=== PATIENT | male | born 1935 | race Caucasian/White ===

== ENCOUNTER 2017-02-23 10:25 | Outpatient (CLI) | payer MEDICARE | END 2017-02-23 10:26 | disposition home or self-care (01) | DX: S09.90XA Unspecified injury of head, initial encounter (principal); W17.89XA Other fall from one level to another, initial encounter; Y93.01 Activity, walking, marching and hiking; Y92.414 Local residential or business street as the place of occurrence of the external cause ==

== ENCOUNTER 2017-03-13 20:59 | Outpatient (CLI) | payer MEDICARE | END 2017-03-13 21:00 | disposition critical access hospital (66) | LOC: EMS 20:59 | PROVIDERS: ATTEND Surgery | DX: R55 Syncope and collapse (principal) | CPT/HCPCS: A0425; A0427 ==

== ENCOUNTER 2017-03-13 21:17 | Inpatient (IN) | payer MEDICARE ==
--- NOTE | 2017-03-13 21:33 | ED Physician Documentation ---
PD HPI HEAD INJURY - Stated complaint Stated Complaint: GLF - Chief complaint Chief Complaint: Neuro - History obtained from History obtained from: Patient PD PAST MEDICAL HISTORY - Past Medical History Cardiovascular: Hypertension, High cholesterol, [place], Other Respiratory: Asthma Neuro: Head injury Endocrine/Autoimmune: None GI: Ulcers : Benign prostate hypertrophy Psych: Depression Musculoskeletal: None - Past Surgical History Past Surgical History: Yes Cardiovascular: Coronary stent, AAA - Present Medications Home Medications: Ambulatory Orders Medication Instructions Recorded Confirmed Aspirin 1 tab PO DAILY 05/20/15 05/20/15 Atenolol 1 tab PO DAILY 05/20/15 05/20/15 Clopidogrel Bisulfate [Plavix] 1 tab PO DAILY 05/20/15 05/20/15 Simvastatin 1 tab PO DAILY 05/20/15 05/20/15 - Allergies Allergies/Adverse Reactions: Allergies Allergy/AdvReac Type Severity Reaction Status Date / Time Penicillins AdvReac Intermediate Hives Verified 05/20/15 19:22 - Social History Does the pt smoke?: Yes Smoking Status: Former smoker Does the pt drink ETOH?: No Does the pt have substance abuse?: No - Immunizations Immunizations are current?: Yes - POLST Patient has POLST: No Results - Vitals Vitals: Vital Signs - 24 hr 03/13/17 21:19 Temperature 37 C Heart Rate 65 Respiratory 18 Rate Blood Pressure 118/68 O2 Saturation 89 L Oxygen O2 Source Room air
[2017-03-13 22:10] LABS: BASOPHILS # (AUTO) 0.1 10^3/uL (0.0-0.1); BASOPHILS % (AUTO) 0.4 %; EOSINOPHILS # (AUTO) 0.1 10^3/uL (0.0-0.7); EOSINOPHILS % (AUTO) 0.7 %; HCT - HEMATOCRIT 36.9 % (42.0-52.0); HGB - HEMOGLOBIN 11.3 g/dL (14.0-18.0); LYMPHOCYTES % (AUTO) 6.1 %; MEAN CORPUSCULAR HEMOGLOBIN 24.4 pg (27.0-31.0); MEAN CORPUSCULAR HGB CONC 30.6 g/dL (32.0-36.0); MEAN CORPUSCULAR VOLUME 79.8 fL (80.0-94.0); MEAN PLATELET VOLUME 6.9 fL (7.4-11.4); MONOCYTES # (AUTO) 0.9 10^3/uL (0.0-1.0); MONOCYTES % (AUTO) 5.4 %; NEUTROPHILS # (AUTO) 14.9 10^3/uL (1.5-6.6); NEUTROPHILS % (AUTO) 87.4 %; RED BLOOD COUNT 4.62 10^6/uL (4.70-6.10); RED CELL DISTRIBUTION WIDTH 17.5 % (12.0-15.0)
[2017-03-13 22:16] LABS: INR 1.2 (0.8-1.2); PT - PROTHROMBIN TIME 13.3 secs (9.9-12.6)
[2017-03-13 22:23] LABS: BILIRUBIN,TOTAL 0.4 mg/dL (0.2-1.0); CALCIUM 8.7 mg/dL (8.5-10.3); CREATININE 1.6 mg/dL (0.6-1.2); PARTIAL THROMBOPLASTIN TIME 23.1 secs (24.9-33.3); POTASSIUM 4.7 mmol/L (3.5-5.0); TOTAL PROTEIN 6.7 g/dL (6.7-8.2)
--- NOTE | 2017-03-13 22:34 | XRAY Preliminary Report ---
Exam: XR Chest 1 View IMPRESSION: Mild nonspecific diffuse interstitial prominence. Differential includes chronic lung dise ase and interstitial edema. [facility] SITE ID: [id number]
--- NOTE | 2017-03-13 22:37 | XRAY Report ---
EXAM: CHEST RADIOGRAPHY EXAM DATE: 03/13/2017 10:15 PM. CLINICAL HISTORY: Fall. Hypoxia. COMPARISON: None. TECHNIQUE: 1 view. FINDINGS: Lungs/Pleura: The left hemidiaphragm is mildly elevated. Mild diffuse interstitial prominence. No foc al consolidation or evidence of edema. No pleural effusion or pneumothorax. Mediastinum: Heart size is normal. The aorta is tortuous and contains atherosclerotic calcifications. Other: No acute bony abnormality is evident. IMPRESSION: Mild nonspecific diffuse interstitial prominence. Differential includes chronic lung dise ase and interstitial edema. [facility] Referring Provider Line: [phone] SITE ID: [id number]
[2017-03-13] MEDS ORDERED: SODIUM CHLORIDE 0.9% 1,000 ML IV ONE (22:47)
--- NOTE | 2017-03-13 23:34 | CT Preliminary Report ---
Exam: CT Head W/O IMPRESSION: 1. Moderate generalized atrophy and chronic microvascular angiopathy. 2. 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 2. No acute intracranial abnormality. [facility] SITE ID: [id number]
--- NOTE | 2017-03-13 23:37 | CT Report ---
EXAM: CT HEAD EXAM DATE: 03/13/2017 10:24 PM. CLINICAL HISTORY: Fall. On Plavix. History of dementia. COMPARISON: None. TECHNIQUE: Multiaxial CT images were obtained from the foramen magnum to the vertex. IV contrast: Non e. Reformats: Coronal. In accordance with CT protocol optimization, one or more of the following dose reduction techniques w ere utilized for this exam: automated exposure control, adjustment of mA and/or KV based on patient s ize, or use of iterative reconstructive technique. FINDINGS: Parenchyma: Moderate patchy white matter hypoattenuation, compatible with chronic small vessel ischem ic change. Small remote high right parietal subcortical infarct. Remote right inferior cerebellar inf arct. No intraparenchymal hemorrhage, mass effect, or CT findings of evolving acute/subacute infarct. Hartman-white differentiation is distinct. Extraaxial Spaces: Moderate diffuse sulcal and ventricular prominence, compatible with generalized at rophy. No midline shift. No epidural or subdural collection is seen. Sinuses: Mild patchy mucosal thickening in the bilateral ethmoid and visualized right maxillary sinus es. Bones: No evidence of fracture or calvarial defect. Other: The visualized superficial soft tissues are unremarkable; no hematoma or edema is evident. Oth er splenic calcifications in the bilateral cavernous internal carotid arteries. Right lens replacemen t noted. IMPRESSION: 1. Moderate generalized atrophy and chronic microvascular angiopathy. 2. 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 2. No acute intracranial abnormality. [facility] Referring Provider Line: [phone] SITE ID: [id number]
--- NOTE | 2017-03-13 23:44 | CT Preliminary Report ---
Exam: CT Cervical Spine W/O IMPRESSION: 1. Severe multilevel degenerative disk disease and mild to moderate multilevel facet arthropathy, as detailed above. 2. Acute on chronic right maxillary and mild acute right ethmoid sinusitis. 3. No acute bony abnormality. [facility] SITE ID: [id number]
--- NOTE | 2017-03-13 23:46 | CT Report ---
EXAM: CT CERVICAL SPINE WITHOUT CONTRAST DATE: 03/13/2017 10:25 PM HISTORY: Fall. History of dementia. COMPARISONS: None. TECHNIQUE: Thin-section axial images were acquired of the cervical spine without contrast. Post-proce ssing: Coronal and sagittal reformats. Other: None. In accordance with CT protocol optimization, one or more of the following dose reduction techniques w ere utilized for this exam: automated exposure control, adjustment of mA and/or KV based on patient s ize, or use of iterative reconstructive technique. FINDINGS: Alignment: No scoliosis or spondylolisthesis. Bones: No fracture or bone lesion. Interspace Levels/Facets: C1-C2: Mild to moderate odontoaxial osteoarthritis. C2-C3: Unremarkable. C3-C4: Severe disk height loss. Disk osteophyte complex and moderate right and mild left facet arthro patrick causing mild bony central canal stenosis and moderate bilateral bony neural foraminal narrowing . C4-C5: Severe disk height loss. Disk osteophyte complex and mild right facet arthropathy causing mild bony central canal stenosis and severe bilateral bony neural foraminal narrowing. C5-C6: Severe disk height loss. Disk osteophyte complex causing mild bony central canal stenosis and severe bilateral bony neural foraminal narrowing. C6-C7: Severe disk height loss. Disk osteophyte complex and mild bilateral facet arthropathy causing mild right bony neural foraminal narrowing. No significant bony central canal stenosis. C7-T1: Unremarkable. Other: Mild patchy mucosal thickening in the bilateral ethmoid air cells, with trace fluid and air bu bbles in the anterior right ethmoid air cells. Mucosal thickening and trace fluid in the right maxill glenny sinus, with hyperostosis of the sinus hairston indicating chronic inflammation. Mucous retention cys t or polyp in the medial left maxillary sinus. No paravertebral hematoma or edema is evident. Emphyse matous changes in the lung apices. IMPRESSION: 1. Severe multilevel degenerative disk disease and mild to moderate multilevel facet arthropathy, as detailed above. 2. Acute on chronic right maxillary and mild acute right ethmoid sinusitis. 3. No acute bony abnormality. [facility] Referring Provider Line: [phone] SITE ID: [id number]
[2017-03-14] MEDS ORDERED: SODIUM CHLORIDE 0.9% 1,000 ML IV ONE (00:15)
[2017-03-14 01:04] LABS: BILIRUBIN,URINE NEGATIVE (NEGATIVE); PH,URINE 5.5 PH (5.0-7.5)
[2017-03-14 01:21] LABS: UA w/ MICROSCOPIC CHARGE YES
[2017-03-14 01:22] LABS: UR CULTURE IF IND NOT INDICATED; WBC,URINE 0-3 /HPF (0-3)
[2017-03-14] MEDS ORDERED: cefTRIAXone 1 GM in SODIUM CHLORIDE 0.9% MINIBAG 100 ML IV STA (01:33)
[2017-03-14] MEDS ORDERED: AZITHROMYCIN INJ 500 MG in SODIUM CHLORIDE 0.9% 250 ML IV STA (01:33)
[2017-03-14] MEDS ORDERED: cefTRIAXone 1 GM VIAL ONE (01:42)
--- NOTE | 2017-03-14 01:42 | ED Physician Documentation ---
PD HPI SYNCOPE - Stated complaint Stated Complaint: GLF - Chief complaint Chief Complaint: Neuro - History obtained from History obtained from: Patient, Family, EMS - History of Present Illness Witnessed: Witnessed Timing - onset: How many hours ago (1) Duration: Minutes (4) Preceding symptoms: Light headed Associated symptoms: No: Seizure, Incontinant of urine, Incontinant of stool, Chest pain, Abdominal pain Contributing factors: Just stood up. No: Recent med change Injury occurred: Fell. No: Bit tongue Similar symptoms before: Has not had sx before Recently seen: Not recently seen - Additional information Additional information: Patient is an 82 year old male who is presenting to the emergency department for a syncopal episode. According to family patient was in the kitchen, he bent over to mixing picker tender a dish, when he stood up he passed out and fell straight backwards. the witnessed the event and states that he did not move for about 4 minutes until he regained consciousness. Upon arrival in the emergency department patient was awake, and denied any pain but he does have a history of mild dementia. Review of Systems Unable to obtain: Dementia PD PAST MEDICAL HISTORY - Past Medical History Cardiovascular: Hypertension, High cholesterol, [place], Other Respiratory: Asthma Neuro: Head injury Endocrine/Autoimmune: None GI: Ulcers : Benign prostate hypertrophy Psych: Depression Musculoskeletal: None - Past Surgical History Past Surgical History: Yes Cardiovascular: Coronary stent, AAA - Present Medications Home Medications: Ambulatory Orders Medication Instructions Recorded Confirmed Aspirin 1 tab PO DAILY 05/20/15 05/20/15 Atenolol 1 tab PO DAILY 05/20/15 05/20/15 Clopidogrel Bisulfate [Plavix] 1 tab PO DAILY 05/20/15 05/20/15 Simvastatin 1 tab PO DAILY 05/20/15 05/20/15 - Allergies Allergies/Adverse Reactions: Allergies Allergy/AdvReac Type Severity Reaction Status Date / Time Penicillins AdvReac Intermediate Hives Verified 05/20/15 19:22 - Social History Does the pt smoke?: Yes Smoking Status: Former smoker Does the pt drink ETOH?: No Does the pt have substance abuse?: No - Immunizations Immunizations are current?: Yes - POLST Patient has POLST: No PD ED PE NORMAL - General General: No acute distress - HEENT HEENT: Atraumatic, PERRL - Neck Neck: No bony TTP - Cardiac Cardiac: No rub - Abdomen Abdomen: Soft, Non tender, Non distended - Extremities Extremities: No deformity, No edema, No calf tenderness / cord - Neuro Neuro: No motor deficit, Normal speech - Psych Psych: Normal mood PD ED PE EXPANDED - General General: No acute distress, Disheveled, poorly kept - HEENT HEENT: Atraumatic, PERRL, Dry mucous membranes, Other (no signs of dental trauma ). No: Head injury - Respiratory Respiratory: Wheezing. No: Distress, Labored, Accessory mm use - Derm Derm: Other (poor skin turgor ) Results - Vitals Vitals: Vital Signs - 24 hr 03/13/17 03/13/17 03/13/17 21:19 21:55 23:46 Temperature 37 C Heart Rate 65 62 60 Respiratory 18 26 H 22 Rate Blood Pressure 118/68 99/51 L 126/70 O2 Saturation 89 L 94 96 03/14/17 03/14/17 00:07 01:59 Temperature 36.6 C 36.6 C Heart Rate 59 L Respiratory 24 Rate Blood Pressure 110/57 L O2 Saturation 95 Oxygen O2 Source Nasal cannula Oxygen Flow Rate 2 - EKG (time done) 6 Rate: Rate (enter#) (81) Rhythm: NSR [place]: LAD Intervals: Prolonged [place] (204), RBBB, Other (lafb) Ischemia: Q waves Compare to prior EKG: Old EKG unavailable - Labs Labs: Laboratory Tests 03/13/17 03/13/17 03/13/17 21:50 21:50 21:50 WBC 17.0 H RBC 4.62 L Hgb 11.3 L Hct 36.9 L MCV 79.8 L MCH 24.4 L MCHC 30.6 L RDW 17.5 H Plt Count 249 MPV 6.9 L Neut # 14.9 H Lymph # 1.0 L Rolette # 0.9 Eos # 0.1 Baso # 0.1 Absolute Nucleated RBC 0.00 Nucleated RBCs 0.0 PT 13.3 H INR 1.2 APTT 23.1 L Sodium 141 Potassium 4.7 Chloride 107 Carbon Dioxide 26 Anion Gap 8.0 BUN 52 H Creatinine 1.6 H Estimated GFR (MDRD) 41 L Glucose 121 H Lactic Acid Calcium 8.7 Total Bilirubin 0.4 AST 39 ALT 40 Alkaline Phosphatase 72 Troponin I B-Natriuretic Peptide Total Protein 6.7 Albumin 3.3 Globulin 3.4 Albumin/Globulin Ratio 1.0 Lipase 40 Urine Color Urine Clarity Urine pH Ur Specific [place] Urine Protein Urine Glucose (UA) Urine Ketones Urine Occult Blood Urine Nitrite Urine Bilirubin Urine Urobilinogen Ur Leukocyte Esterase Urine RBC Urine WBC Ur Squamous Epith Cells Urine Bacteria Ur Microscopic Review Urine Culture Comments 03/13/17 03/13/17 03/13/17 21:50 21:50 23:10 WBC RBC Hgb Hct MCV MCH MCHC RDW Plt Count MPV Neut # Lymph # Rolette # Eos # Baso # Absolute Nucleated RBC Nucleated RBCs PT INR APTT Sodium Potassium Chloride Carbon Dioxide Anion Gap BUN Creatinine Estimated GFR (MDRD) Glucose Lactic Acid 0.6 Calcium Total Bilirubin AST ALT Alkaline Phosphatase Troponin I < 0.04 B-Natriuretic Peptide 251 H Total Protein Albumin Globulin Albumin/Globulin Ratio Lipase Urine Color Urine Clarity Urine pH Ur Specific [place] Urine Protein Urine Glucose (UA) Urine Ketones Urine Occult Blood Urine Nitrite Urine Bilirubin Urine Urobilinogen Ur Leukocyte Esterase Urine RBC Urine WBC Ur Squamous Epith Cells Urine Bacteria Ur Microscopic Review Urine Culture Comments 03/14/17 00:57 WBC RBC Hgb Hct MCV MCH MCHC RDW Plt Count MPV Neut # Lymph # Rolette # Eos # Baso # Absolute Nucleated RBC Nucleated RBCs PT INR APTT Sodium Potassium Chloride Carbon Dioxide Anion Gap BUN Creatinine Estimated GFR (MDRD) Glucose Lactic Acid Calcium Total Bilirubin AST ALT Alkaline Phosphatase Troponin I B-Natriuretic Peptide Total Protein Albumin Globulin Albumin/Globulin Ratio Lipase Urine Color YELLOW Urine Clarity CLEAR Urine pH 5.5 Ur Specific [place] 1.025 Urine Protein 30 H Urine Glucose (UA) NEGATIVE Urine Ketones NEGATIVE Urine Occult Blood SMALL H Urine Nitrite NEGATIVE Urine Bilirubin NEGATIVE Urine Urobilinogen 0.2 (NORMAL) Ur Leukocyte Esterase NEGATIVE Urine RBC None Seen Urine WBC 0-3 Ur Squamous Epith Cells RARE Squamous Urine Bacteria None Seen Ur Microscopic Review INDICATED Urine Culture Comments NOT INDICATED - Rads (name of study) chest x-ray Radiology: Final report received (diffuse interstitial prominence, chronic lung disease vs interstitial edema) ct head Radiology: Final report received (moderate generalized atrophy, chonric microvascular angiopathy, no acute changes) ct cervical spine Radiology: Final report received (multilevel degenerativve disk disease, no acute bony abnormality) PD MEDICAL DECISION MAKING - ED course Complexity details: reviewed results, re-evaluated patient, considered differential, d/w patient, d/w family ED course: Patient was seen and examined at bedside. Patient was placed on a monitor, iv access was gained and labs were drawn. ekg was performed and showed multiple abnormalities but no signs of acute ischemia. Patient was started on IV fluids. Patient was sent for imaging. When patient returned he was found to have a leukocytosis and teodora, which was new according to his . Patient was unable to urinate and was treated with an additional liter of fluid. patients chest x-ray had non-specific findings but was the most likely source of the leukocytosis. Patient was treated with rocephin and azithromycin. Hospitalist was contacted and the case was discussed with her. Patient was admitted under her service for further evaluation and care. Departure - Departure Disposition: 66 [facility] DC/Xfer Clinical Impression: Syncope, Leukocytosis, TEODORA (acute kidney injury) Condition: Stable
[2017-03-14 02:38] LABS: VBG PH 7.284 (7.31-7.41)
[2017-03-14 02:39] LABS: VBG BASE EXCESS -3.1 mmol/L (-2 - +2); VBG OXYGEN SATURATION 94.9 % (60-80); VBG TOTAL CO2 25.5 mmol/L (24-29)
--- NOTE | 2017-03-14 03:10 | HISTORY & PHYSICAL EXAMINATION ---
DATE OF ADMISSION: 03/13/2017 PRIMARY CARE PROVIDER: Dr. Ferrer, [facility]. CHIEF COMPLAINT: Syncopal episode. HISTORY OF PRESENT ILLNESS: This is an 82-year-old male who has a history of COPD who also has some d ementia who was in his usual state of health, was bending over to picket [employer] some plates out of a cabine t, stood up and felt lightheaded, fell backwards. His evaluation in the emergency room includes a whi te count of 17.0. Chest x-ray shows possible bibasilar pneumonia infiltrates. His CT of head without contrast reveals moderate generalized atrophy and chronic microvascular angiopathy remote infarcts in the high right parietal lobe and inferior right cerebellum. No acute intracranial abnormalities note d. CT of neck reveals severe multilevel degenerative disk disease and mild to moderate multilevel fac et arthropathy, acute on chronic right maxillary and mild acute right ethmoid sinusitis, no acute bon y abnormalities noted. EKG reveals sinus at a rate of 81 with right bundle branch block, left anterio r fascicular blocks, old inferior infarct pattern with Q's in II, III, aVF. Initial troponin is less than 0.04. Lactic acid is 0.6. Urine shows protein of 30, small occult blood, otherwise negative. PAST MEDICAL HISTORY: Coronary artery disease with stent placed in [facility] in 2010, history of abdominal aortic aneurysm repair in 2011, history of BPH, hyperlipidemia, hypertension, h istory of [place]. MEDICATIONS UPON ADMISSION 1. ASA 325 mg p.o. daily. 2. Atenolol 50 mg p.o. daily. 3. Plavix 75 mg p.o. daily. 4. Simvastatin 40 mg p.o. daily. ALLERGIES: PENICILLIN. SOCIAL HISTORY: Lives with . Smoking currently a pack per day. Alcohol none. FAMILY MEDICAL HISTORY: History of CAD. REVIEW OF SYSTEMS: Denies any fevers, chills. Denies any nausea or vomiting. All other review of syst ems are reviewed and negative except for as in HPI. PHYSICAL EXAMINATION VITAL SIGNS: Reveals temperature is afebrile, heart rate 59, blood pressure 110/57, respiratory rate 24, 2 L nasal cannula O2 saturation 95%. CONSTITUTIONAL: Disheveled elderly man in no acute distress. HEAD: Normocephalic, atraumatic. EYES: PERRLA-DC, EOMI. MOUTH: Uses dentures. NECK: No adenopathy. Carotids 2+/4 without bruits. CHEST: Diffuse scattered wheezes. COR: Regular rate and rhythm, S1, S2 without murmur. ABDOMEN: Soft, nontender. Bowel sounds present. EXTREMITIES: Reveals no pedal edema. SKIN: No rashes. PSYCHIATRIC: Mood and affect are appropriate. NEUROLOGIC: Alert and oriented x3. Motor strength is intact bilaterally. LABORATORY DATA: As above. Also to include INR is 1.2, PTT is 23.1. White count 17.0, hematocrit 36.9 , hemoglobin 11.3, MCV 79.8, platelets 249 with 14.9 polys. Sodium 141, potassium 4.7, chloride 107, bicarbonate 26, BUN 52, creatinine 1.6, calculated GFR 41. Of note, no previous GFR is listed in the EMR. Glucose 121, lactic acid 0.6, calcium 8.7, total bilirubin 0.4, AST 39, ALT 40, alkaline phospha tase 72, BNP 251, total protein 6.7, albumin 3.3, lipase 40. ASSESSMENT AND PLAN 1. Syncopal episode, acute, present on admission, unclear etiology. We will go ahead and may be relat ed to sepsis with pneumonia, but will check serial cardiac enzymes. We will also check echocardiogram with bubble study. Monitor blood pressures. 2. Sepsis with bibasilar pneumonic infiltrates, community-acquired. Will cover with IV Rocephin and I V azithromycin. Check influenza screen. Check sputum studies for culture and Gram stain. 3. Chronic obstructive pulmonary disease exacerbation with hypoxia and wheezing. We will go ahead and check a venous blood gas. We will go ahead and place on prednisone 40 mg p.o. daily along with DuoNe bs q.i.d. and Albuterol nebs p.r.n. 4. Deep venous thrombosis prophylaxis. We will place on subcutaneous heparin and SCDs. 5. Code status. The patient is FULL CODE. TIME SPENT: 60 minutes. JOB #: [id number] EXT JOB #:[id number]
[2017-03-14] MEDS ORDERED: IPRATROPIUM/ALBUTEROL 3 ML NEB INH ONE (04:52)
[2017-03-14] MEDS ORDERED: ALBUTEROL NEB 2.5 MG/3 ML INH SCH (05:00)
[2017-03-14] MEDS: IPRATROPIUM/ALBUTEROL 3 ML NEB INH SCH ×2 (05:04→07:50)
[2017-03-14] MEDS ORDERED: ALBUTEROL NEB 2.5 MG/3 ML INH PRN (05:14)
[2017-03-14 05:54] LABS: BASOPHILS % (AUTO) 0.4 %; EOSINOPHILS # (AUTO) 0.1 10^3/uL (0.0-0.7); EOSINOPHILS % (AUTO) 0.8 %; HCT - HEMATOCRIT 34.1 % (42.0-52.0); HGB - HEMOGLOBIN 10.4 g/dL (14.0-18.0); LYMPHOCYTES # (AUTO) 1.1 10^3/uL (1.5-3.5); LYMPHOCYTES % (AUTO) 8.7 %; MEAN CORPUSCULAR HEMOGLOBIN 24.6 pg (27.0-31.0); MEAN CORPUSCULAR HGB CONC 30.6 g/dL (32.0-36.0); MEAN CORPUSCULAR VOLUME 80.4 fL (80.0-94.0); MEAN PLATELET VOLUME 6.8 fL (7.4-11.4); MONOCYTES # (AUTO) 0.7 10^3/uL (0.0-1.0); MONOCYTES % (AUTO) 5.3 %; NEUTROPHILS # (AUTO) 10.6 10^3/uL (1.5-6.6); NEUTROPHILS % (AUTO) 84.8 %; RED BLOOD COUNT 4.25 10^6/uL (4.70-6.10); RED CELL DISTRIBUTION WIDTH 18.3 % (12.0-15.0); UNCORRECTED WHITE BLOOD COUNT 12.4 x10^3/uL; WHITE BLOOD COUNT 12.4 x10^3/uL (4.8-10.8)
[2017-03-14 06:06] LABS: CREATININE 1.4 mg/dL (0.6-1.2); POTASSIUM 4.6 mmol/L (3.5-5.0)
[2017-03-14] MEDS ORDERED: HYDROcod/ACETAM 5/325 MG TABLET PO PRN (07:50)
[2017-03-14] MEDS ORDERED: ONDANSETRON 4 MG/2 ML VIAL IVP PRN (07:50)
[2017-03-14] MEDS ORDERED: ACETAMINOPHEN 325 MG TABLET PO PRN (07:50)
[2017-03-14] MEDS ORDERED: HEPARIN 5,000 UNIT/ML VIAL IVP SCH (09:00)
[2017-03-14] MEDS ORDERED: HEPARIN 5,000 UNIT/ML VIAL SUBQ SCH (09:00)
[2017-03-14] MEDS: SODIUM CHLORIDE 0.9% 1,000 ML IV SCH (09:48)
[2017-03-14] MEDS: SODIUM CHLORIDE FLUSH 0.9% 10 ML SYRINGE IVP SCH ×2 (09:49→22:02)
[2017-03-14] MEDS: AZITHROMYCIN INJ 500 MG in SODIUM CHLORIDE 0.9% 250 ML IV SCH (09:52)
[2017-03-14] MEDS: ASPIRIN 325 MG TABLET PO SCH (09:53)
[2017-03-14] MEDS: CLOPIDOGREL 75 MG TABLET PO SCH (09:53)
[2017-03-14] MEDS: predniSONE 20 MG TABLET PO SCH (09:53)
[2017-03-14] MEDS: ATORVASTATIN 10 MG TABLET PO SCH (09:55)
[2017-03-14] MEDS: SACCHAROMYCES BOULARDII 250 MG CAPSULE PO SCH ×2 (09:56→22:02)
[2017-03-14] MEDS: ENOXAPARIN 40 MG/0.4 ML SYRINGE SUBQ SCH (09:56)
[2017-03-14] MEDS: POLYETHYLENE GLYCOL 3350 17 GM PACKET PO SCH (09:56)
[2017-03-14] MEDS ORDERED: IPRATROPIUM/ALBUTEROL 3 ML NEB INH PRN (11:45)
[2017-03-14] MEDS: PANTOPRAZOLE 40 MG TABLET PO SCH (12:30)
[2017-03-14] MEDS: ATENOLOL 25 MG TABLET PO SCH (12:30)
--- NOTE | 2017-03-14 17:46 | PROVIDER PROGRESS NOTE ---
Hospitalist Cross-cover Note - Cross-Cover Note Cross-Cover Note: Patient seen and examined this morning. Presented early this morning for syncope and found to be septic with CXR showing pneumonia. Patient down to 1L of O2 this am. He is eating and appears improved. Talking in full sentences. Denies any fever or chest pain. Lungs have corase sounds. Patient improving. WBC down to 12.4. COntinue IV abx with ceftriaxone and azithromycin. Patient eating will no need for IVFs.
[2017-03-15] MEDS: SODIUM CHLORIDE 0.9% 1,000 ML IV SCH ×2 (01:40→08:14)
[2017-03-15] MEDS: cefTRIAXone 2 GM in SODIUM CHLORIDE 0.9% MINIBAG 100 ML IV SCH (01:44)
[2017-03-15 06:05] LABS: BASOPHILS % (AUTO) 0.2 %; EOSINOPHILS % (AUTO) 0.2 %; HCT - HEMATOCRIT 32.4 % (42.0-52.0); HGB - HEMOGLOBIN 10.1 g/dL (14.0-18.0); LYMPHOCYTES # (AUTO) 1.3 10^3/uL (1.5-3.5); LYMPHOCYTES % (AUTO) 8.3 %; MEAN CORPUSCULAR HEMOGLOBIN 24.7 pg (27.0-31.0); MEAN CORPUSCULAR HGB CONC 31.2 g/dL (32.0-36.0); MEAN PLATELET VOLUME 6.7 fL (7.4-11.4); MONOCYTES # (AUTO) 1.1 10^3/uL (0.0-1.0); MONOCYTES % (AUTO) 7.3 %; NEUTROPHILS # (AUTO) 13.1 10^3/uL (1.5-6.6); RED BLOOD COUNT 4.11 10^6/uL (4.70-6.10); RED CELL DISTRIBUTION WIDTH 17.9 % (12.0-15.0); UNCORRECTED WHITE BLOOD COUNT 15.6 x10^3/uL; WHITE BLOOD COUNT 15.6 x10^3/uL (4.8-10.8)
[2017-03-15 06:12] LABS: CALCIUM 8.3 mg/dL (8.5-10.3); CREATININE 1.1 mg/dL (0.6-1.2); POTASSIUM 4.3 mmol/L (3.5-5.0)
[2017-03-15] MEDS: ENOXAPARIN 40 MG/0.4 ML SYRINGE SUBQ SCH (07:55)
[2017-03-15] MEDS: ASPIRIN 325 MG TABLET PO SCH (07:56)
[2017-03-15] MEDS: predniSONE 20 MG TABLET PO SCH (07:56)
[2017-03-15] MEDS: ATORVASTATIN 10 MG TABLET PO SCH (07:56)
[2017-03-15] MEDS: CLOPIDOGREL 75 MG TABLET PO SCH (07:56)
[2017-03-15] MEDS: SACCHAROMYCES BOULARDII 250 MG CAPSULE PO SCH ×2 (07:57→17:18)
[2017-03-15] MEDS: ATENOLOL 25 MG TABLET PO SCH (07:57)
[2017-03-15] MEDS: PANTOPRAZOLE 40 MG TABLET PO SCH (07:57)
[2017-03-15] MEDS: POLYETHYLENE GLYCOL 3350 17 GM PACKET PO SCH (07:58)
[2017-03-15] MEDS: AZITHROMYCIN INJ 500 MG in SODIUM CHLORIDE 0.9% 250 ML IV SCH (08:12)
[2017-03-15] MEDS: SODIUM CHLORIDE FLUSH 0.9% 10 ML SYRINGE IVP SCH ×3 (08:15→21:22)
--- NOTE | 2017-03-15 10:20 | PROVIDER PROGRESS NOTE ---
Assessment/Plan - Problem List (1) Pneumonia Assessment/Plan: He has been on the antibx 24 hours. He is improved. He is now on roomn aior. He is anxious though. \ WBC ester again after an initial decline 17K to 12 K and now up to 15 K. He is dyspneic with minimal exertion. (2) Sepsis Assessment/Plan: He is still systemically sick though he is not septidc anymore. He will need the CXR repeated. He does have problems with chronic risk factors, i.e. his tobacco abuse and his COPD. - Current Meds Current Meds: Current Medications Generic Name Dose Route Start Last Admin Trade Name Freq PRN Reason Stop Dose Admin Aspirin 325 mg 03/14/17 09:00 03/15/17 07:56 Nik PO 325 mg DAILY ALONZO Administration Atenolol 50 mg 03/14/17 09:00 03/15/17 07:57 Tenormin PO 50 mg DAILY ALONZO Administration Atorvastatin Calcium 20 mg 03/14/17 09:00 03/15/17 07:56 Lipitor PO 20 mg DAILY ALONZO Administration Clopidogrel Bisulfate 75 mg 03/14/17 09:00 03/15/17 07:56 Plavix PO 75 mg DAILY ALONZO Administration Enoxaparin Sodium 40 mg 03/14/17 09:00 03/15/17 07:55 Lovenox SUBQ 40 mg DAILY ALONZO Administration Ceftriaxone Sodium 2 gm/ 100 mls @ 200 mls/hr 03/15/17 02:00 03/15/17 01:44 Sodium Chloride IV 200 mls/hr Q24H ALONZO Administration Azithromycin 500 mg/ Sodium 250 mls @ 250 mls/hr 03/14/17 09:00 03/15/17 08:12 Chloride IV 250 mls/hr DAILY ALONZO Administration Pantoprazole Sodium 40 mg 03/14/17 11:00 03/15/17 07:57 Protonix PO 40 mg QDAC ALONZO Administration Polyethylene Glycol 17 gm 03/14/17 09:00 03/15/17 07:58 Miralax PO Not Given DAILY ALONZO Prednisone 40 mg 03/14/17 08:00 03/15/17 07:56 Deltasone PO 40 mg DAILYWM ALONZO Administration Saccharomyces Boulardii 250 mg 03/14/17 08:00 03/15/17 07:57 Florastor PO 250 mg BIDWM ALONZO Administration Sodium Chloride 10 ml 03/14/17 14:00 03/15/17 08:15 Normal Saline Flush 0.9% IVP Not Given Q8HR ALONZO - Lab Result Fish Bone Diagrams: 03/15/17 05:45 03/15/17 05:45 - Additional Planning My Orders: My Active Orders 03/15/17 11:00 Nicotine 21 mg Patch [Nicoderm] 1 patch TOP DAILY Subjective - Subjective Patient Reports: Feeling Better, Shortness of Breath Nursing Reports: Confused, Other (He appears anxious.) Objective Vital Signs: Vital Signs - 24 hr 03/14/17 03/14/17 03/14/17 11:00 21:52 23:35 Temperature 36.7 C 36.9 C Heart Rate 68 Heart Rate [ 73 Brachial] Respiratory 18 20 16 Rate Blood Pressure 152/87 H 108/56 L [Left Brachial artery] O2 Saturation 94 94 03/15/17 03/15/17 03/15/17 07:55 09:00 09:27 Temperature 36.6 C Heart Rate 60 Heart Rate [ 78 Brachial] Respiratory 22 18 Rate Blood Pressure 200/110 H [Left Brachial artery] O2 Saturation 93 Oxygen O2 Source Room air I&O (Last 24 Hrs): Intake and Output Totals x24h 03/13/17 03/14/17 03/15/17 23:59 23:59 23:59 Intake Total 2526 780 Output Total 450 1375 Balance 2076 -595 General: Alert, Cooperative HEENT: PERRLA, EOMI Neck: No JVD, No thyromegaly Neuro: Alert, Disoriented, Non Focal Cardiovascular: Regular rate, No murmurs Respiratory: Chest non-tender, Rales, Rhonchi Abdomen: Soft, No tenderness Extremities: No clubbing, No edema - Results Results: Laboratory Results WBC 15.6 x10^3/uL (4.8-10.8) H 03/15/17 05:45 RBC 4.11 10^6/uL (4.70-6.10) L 03/15/17 05:45 Hgb 10.1 g/dL (14.0-18.0) L 03/15/17 05:45 Hct 32.4 % (42.0-52.0) L 03/15/17 05:45 MCV 79.0 fL (80.0-94.0) L 03/15/17 05:45 MCH 24.7 pg (27.0-31.0) L 03/15/17 05:45 MCHC 31.2 g/dL (32.0-36.0) L 03/15/17 05:45 RDW 17.9 % (12.0-15.0) H 03/15/17 05:45 Plt Count 245 10^3/uL (130-450) 03/15/17 05:45 MPV 6.7 fL (7.4-11.4) L 03/15/17 05:45 Neut # 13.1 10^3/uL (1.5-6.6) H 03/15/17 05:45 Lymph # 1.3 10^3/uL (1.5-3.5) L 03/15/17 05:45 [place] # 1.1 10^3/uL (0.0-1.0) H 03/15/17 05:45 Eos # 0.0 10^3/uL (0.0-0.7) 03/15/17 05:45 Baso # 0.0 10^3/uL (0.0-0.1) 03/15/17 05:45 Absolute Nucleated RBC 0.00 x10^3/uL 03/15/17 05:45 Nucleated RBCs 0.0 /100WBC 03/15/17 05:45 PT 13.3 secs (9.9-12.6) H 03/13/17 21:50 INR 1.2 (0.8-1.2) 03/13/17 21:50 APTT 23.1 secs (24.9-33.3) L 03/13/17 21:50 VBG pH 7.284 (7.31-7.41) L 03/14/17 02:30 VBG pCO2 51.5 mmHg (41-51) H 03/14/17 02:30 VBG pO2 80.9 mmHg (25-47) H 03/14/17 02:30 VBG HCO3 23.9 mmol/L (23-28) 03/14/17 02:30 VBG Total CO2 25.5 mmol/L (24-29) 03/14/17 02:30 VBG O2 Saturation 94.9 % (60-80) H 03/14/17 02:30 VBG Base Excess -3.1 mmol/L (-2 - +2) L 03/14/17 02:30 Sodium 140 mmol/L (135-145) 03/15/17 05:45 Potassium 4.3 mmol/L (3.5-5.0) 03/15/17 05:45 Chloride 110 mmol/L (101-111) 03/15/17 05:45 Carbon Dioxide 25 mmol/L (21-32) 03/15/17 05:45 Anion Gap 5.0 (6-13) L 03/15/17 05:45 BUN 36 mg/dL (6-20) H 03/15/17 05:45 Creatinine 1.1 mg/dL (0.6-1.2) 03/15/17 05:45 Estimated GFR (MDRD) 64 (>89) L 03/15/17 05:45 Glucose 95 mg/dL (70-100) 03/15/17 05:45 Lactic Acid 0.6 mmol/L (0.5-2.2) 03/13/17 23:10 Calcium 8.3 mg/dL (8.5-10.3) L 03/15/17 05:45 Total Bilirubin 0.4 mg/dL (0.2-1.0) 03/13/17 21:50 AST 39 IU/L (10-42) 03/13/17 21:50 ALT 40 IU/L (10-60) 03/13/17 21:50 Alkaline Phosphatase 72 IU/L (42-121) 03/13/17 21:50 Troponin I < 0.04 ng/mL (<0.49) 03/14/17 09:05 B-Natriuretic Peptide 251 pg/mL (5-100) H 03/13/17 21:50 Total Protein 6.7 g/dL (6.7-8.2) 03/13/17 21:50 Albumin 3.3 g/dL (3.2-5.5) 03/13/17 21:50 Globulin 3.4 g/dL (2.1-4.2) 03/13/17 21:50 Albumin/Globulin Ratio 1.0 (1.0-2.2) 03/13/17 21:50 Lipase 40 U/L (22-51) 03/13/17 21:50 Urine Color YELLOW 03/14/17 00:57 Urine Clarity CLEAR (CLEAR) 03/14/17 00:57 Urine pH 5.5 PH (5.0-7.5) 03/14/17 00:57 Ur Specific [place] 1.025 (1.002-1.030) 03/14/17 00:57 Urine Protein 30 mg/dL (NEGATIVE) H 03/14/17 00:57 Urine Glucose (UA) NEGATIVE mg/dL (NEGATIVE) 03/14/17 00:57 Urine Ketones NEGATIVE mg/dL (NEGATIVE) 03/14/17 00:57 Urine Occult Blood SMALL (NEGATIVE) H 03/14/17 00:57 Urine Nitrite NEGATIVE (NEGATIVE) 03/14/17 00:57 Urine Bilirubin NEGATIVE (NEGATIVE) 03/14/17 00:57 Urine Urobilinogen 0.2 (NORMAL) E.U./dL (NORMAL) 03/14/17 00:57 Ur Leukocyte Esterase NEGATIVE (NEGATIVE) 03/14/17 00:57 Urine RBC None Seen /HPF (0-5) 03/14/17 00:57 Urine WBC 0-3 /HPF (0-3) 03/14/17 00:57 Ur Squamous Epith Cells RARE Squamous (<= Few) 03/14/17 00:57 Urine Bacteria None Seen /HPF (None Seen) 03/14/17 00:57 Ur Microscopic Review INDICATED 03/14/17 00:57 Urine Culture Comments NOT INDICATED 03/14/17 00:57 Influenza A (Rapid) Negative (Negative) 03/14/17 03:07 Influenza B (Rapid) Negative (Negative) 03/14/17 03:07 Influenza Types A,B Ag - 03/14/17 03:07
[2017-03-15] MEDS: NICOTINE 21 MG PATCH TOP SCH (10:24)
[2017-03-15] MEDS: LORazepam 0.5 MG TABLET PO SCH ×2 (10:47→21:23)
[2017-03-15] MEDS ORDERED: LORazepam 2 MG/ML SYRINGE IVP ONE (14:00)
[2017-03-15] MEDS ORDERED: cloNIDine 0.1 MG TABLET PO PRN (16:53)
[2017-03-16] MEDS ORDERED: MIN OIL/DIMETHICON/COCONUT OIL 92 GM TUBE TOP PRN (00:59)
[2017-03-16] MEDS: cefTRIAXone 2 GM in SODIUM CHLORIDE 0.9% MINIBAG 100 ML IV SCH (01:40)
[2017-03-16 06:05] LABS: BASOPHILS % (AUTO) 0.3 %; EOSINOPHILS # (AUTO) 0.1 10^3/uL (0.0-0.7); HCT - HEMATOCRIT 36.4 % (42.0-52.0); HGB - HEMOGLOBIN 11.4 g/dL (14.0-18.0); LYMPHOCYTES % (AUTO) 7.6 %; MEAN CORPUSCULAR HEMOGLOBIN 24.5 pg (27.0-31.0); MEAN CORPUSCULAR HGB CONC 31.3 g/dL (32.0-36.0); MEAN CORPUSCULAR VOLUME 78.4 fL (80.0-94.0); MEAN PLATELET VOLUME 6.7 fL (7.4-11.4); MONOCYTES % (AUTO) 7.1 %; NEUTROPHILS # (AUTO) 11.3 10^3/uL (1.5-6.6); NUCLEATED RED BLOOD CELLS AUTO 0.1 /100WBC; RED BLOOD COUNT 4.64 10^6/uL (4.70-6.10); RED CELL DISTRIBUTION WIDTH 17.5 % (12.0-15.0); UNCORRECTED WHITE BLOOD COUNT 13.4 x10^3/uL; WHITE BLOOD COUNT 13.4 x10^3/uL (4.8-10.8)
[2017-03-16 06:13] LABS: CALCIUM 8.5 mg/dL (8.5-10.3); CREATININE 0.9 mg/dL (0.6-1.2); POTASSIUM 4.1 mmol/L (3.5-5.0)
[2017-03-16] MEDS: PANTOPRAZOLE 40 MG TABLET PO SCH (07:00)
[2017-03-16] MEDS: SODIUM CHLORIDE FLUSH 0.9% 10 ML SYRINGE IVP SCH ×3 (07:00→21:18)
[2017-03-16] MEDS: LORazepam 0.5 MG TABLET PO SCH ×3 (07:00→21:15)
--- NOTE | 2017-03-16 08:25 | PROVIDER PROGRESS NOTE ---
Assessment/Plan - Problem List (1) Leukocytosis Qualifiers: Leukocytosis type: unspecified Qualified Code(s): D72.829 - Elevated white blood cell count, unspecified Assessment/Plan: ongoing. continue ABX and CBC monitoring (2) Sepsis Qualifiers: Sepsis type: sepsis due to unspecified organism Qualified Code(s): A41.9 - Sepsis, unspecified organism Assessment/Plan: improving. continue to monitor CBC and decreasing WBC. RT treatments and supplemental oxygen - Current Meds Current Meds: Current Medications Generic Name Dose Route Start Last Admin Trade Name Freq PRN Reason Stop Dose Admin Aspirin 325 mg 03/14/17 09:00 03/15/17 07:56 Nik PO 325 mg DAILY ALONZO Administration Atenolol 50 mg 03/14/17 09:00 03/15/17 07:57 Tenormin PO 50 mg DAILY ALONZO Administration Atorvastatin Calcium 20 mg 03/14/17 09:00 03/15/17 07:56 Lipitor PO 20 mg DAILY ALONZO Administration Clonidine HCl 0.1 mg 03/15/17 16:53 03/15/17 21:24 Catapres PO 0.1 mg Q6H PRN Administration Hypertensive Emergency Clopidogrel Bisulfate 75 mg 03/14/17 09:00 03/15/17 07:56 Plavix PO 75 mg DAILY ALONZO Administration Enoxaparin Sodium 40 mg 03/14/17 09:00 03/15/17 07:55 Lovenox SUBQ 40 mg DAILY ALONZO Administration Ceftriaxone Sodium 2 gm/ 100 mls @ 200 mls/hr 03/15/17 02:00 03/16/17 01:40 Sodium Chloride IV 200 mls/hr Q24H ALONZO Administration Azithromycin 500 mg/ Sodium 250 mls @ 250 mls/hr 03/14/17 09:00 03/15/17 08:12 Chloride IV 250 mls/hr DAILY ALONZO Administration Lorazepam 0.5 mg 03/15/17 11:00 03/16/17 07:00 Ativan PO 0.5 mg TID ALONZO Administration Nicotine 1 patch 03/15/17 11:00 03/15/17 10:24 Nicoderm TOP 1 patch DAILY ALONZO Administration Pantoprazole Sodium 40 mg 03/14/17 11:00 03/16/17 07:00 Protonix PO 40 mg QDAC ALONZO Administration Polyethylene Glycol 17 gm 03/14/17 09:00 03/15/17 07:58 Miralax PO Not Given DAILY ALONZO Prednisone 40 mg 03/14/17 08:00 03/15/17 07:56 Deltasone PO 40 mg DAILYWM ALONZO Administration Saccharomyces Boulardii 250 mg 03/14/17 08:00 03/15/17 17:18 Florastor PO 250 mg BIDWM ALONZO Administration Sodium Chloride 10 ml 03/14/17 14:00 03/16/17 07:00 Normal Saline Flush 0.9% IVP 10 ml Q8HR ALONZO Administration - Lab Result Lab results reviewed: Yes Fish Bone Diagrams: 03/16/17 05:50 03/16/17 05:50 Other Lab Results: Abnormal Lab Results 03/15/17 03/15/17 03/16/17 05:45 05:45 05:50 WBC 15.6 x10^3/uL H x10^3/uL 13.4 x10^3/uL H x10^3/uL (4.8-10.8) (4.8-10.8) RBC 4.11 10^6/uL L 10^6/uL 4.64 10^6/uL L 10^6/uL (4.70-6.10) (4.70-6.10) Hgb 10.1 g/dL L g/dL 11.4 g/dL L g/dL (14.0-18.0) (14.0-18.0) Hct 32.4 % L % 36.4 % L % (42.0-52.0) (42.0-52.0) MCV 79.0 fL L fL 78.4 fL L fL (80.0-94.0) (80.0-94.0) MCH 24.7 pg L pg 24.5 pg L pg (27.0-31.0) (27.0-31.0) MCHC 31.2 g/dL L g/dL 31.3 g/dL L g/dL (32.0-36.0) (32.0-36.0) RDW 17.9 % H % 17.5 % H % (12.0-15.0) (12.0-15.0) MPV 6.7 fL L fL 6.7 fL L fL (7.4-11.4) (7.4-11.4) Neut # 13.1 10^3/uL H 10^3/uL 11.3 10^3/uL H 10^3/uL (1.5-6.6) (1.5-6.6) Lymph # 1.3 10^3/uL L 10^3/uL 1.0 10^3/uL L 10^3/uL (1.5-3.5) (1.5-3.5) [place] # 1.1 10^3/uL H 10^3/uL (0.0-1.0) Sodium Chloride Anion Gap 5.0 L (6-13) BUN 36 mg/dL H mg/dL (6-20) Estimated GFR (MDRD) 64 L (>89) Calcium 8.3 mg/dL L mg/dL (8.5-10.3) 03/16/17 05:50 WBC RBC Hgb Hct MCV MCH MCHC RDW MPV Neut # Lymph # [place] # Sodium 134 mmol/L L mmol/L (135-145) Chloride 100 mmol/L L mmol/L (101-111) Anion Gap BUN 28 mg/dL H mg/dL (6-20) Estimated GFR (MDRD) 81 L (>89) Calcium - EKG Results EKG Interpreted Independently: Yes - Additional Planning Condition/Complexity: Stable Time Spent: 31-60 minutes Subjective - Subjective Patient Reports: Resting Comfortably, No Complaints Nursing Reports: No Complaints Objective Vital Signs: Vital Signs - 24 hr 03/15/17 03/15/17 03/15/17 09:00 09:27 10:28 Temperature 36.6 C Heart Rate 60 Heart Rate [ 60 Brachial] Respiratory 22 18 Rate Blood Pressure 180/100 H [Left Brachial artery] Blood Pressure [Right Brachial artery] O2 Saturation 93 03/15/17 03/15/17 03/15/17 12:39 15:53 15:54 Temperature 36.4 C L 36.4 C L Heart Rate Heart Rate [ 71 76 Brachial] Respiratory 20 28 H Rate Blood Pressure 197/103 H [Left Brachial artery] Blood Pressure 192/91 H 190/102 H [Right Brachial artery] O2 Saturation 94 93 03/15/17 03/15/17 03/16/17 19:15 20:55 00:58 Temperature 36.6 C 36.6 C Heart Rate 63 Heart Rate [ 62 60 Brachial] Respiratory 22 26 H 28 H Rate Blood Pressure [Left Brachial artery] Blood Pressure 191/105 H 191/89 H [Right Brachial artery] O2 Saturation 95 93 03/16/17 08:22 Temperature 36.4 C L Heart Rate Heart Rate [ 50 L Brachial] Respiratory 18 Rate Blood Pressure [Left Brachial artery] Blood Pressure 184/103 H [Right Brachial artery] O2 Saturation 95 Oxygen O2 Source Room air I&O (Last 24 Hrs): Intake and Output Totals x24h 03/14/17 03/15/17 03/16/17 23:59 23:59 23:59 Intake Total 2526 3845 320 Output Total 450 3775 975 Balance 207 70 -355 Neuro: Alert, Disoriented Respiratory: No respiratory distress Abdomen: No tenderness Rectal: Non-Tender Extremities: No edema Skin: No rashes - Results Results: Laboratory Results WBC 13.4 x10^3/uL (4.8-10.8) H 03/16/17 05:50 RBC 4.64 10^6/uL (4.70-6.10) L 03/16/17 05:50 Hgb 11.4 g/dL (14.0-18.0) L 03/16/17 05:50 Hct 36.4 % (42.0-52.0) L 03/16/17 05:50 MCV 78.4 fL (80.0-94.0) L 03/16/17 05:50 MCH 24.5 pg (27.0-31.0) L 03/16/17 05:50 MCHC 31.3 g/dL (32.0-36.0) L 03/16/17 05:50 RDW 17.5 % (12.0-15.0) H 03/16/17 05:50 Plt Count 271 10^3/uL (130-450) 03/16/17 05:50 MPV 6.7 fL (7.4-11.4) L 03/16/17 05:50 Neut # 11.3 10^3/uL (1.5-6.6) H 03/16/17 05:50 Lymph # 1.0 10^3/uL (1.5-3.5) L 03/16/17 05:50 [place] # 1.0 10^3/uL (0.0-1.0) 03/16/17 05:50 Eos # 0.1 10^3/uL (0.0-0.7) 03/16/17 05:50 Baso # 0.0 10^3/uL (0.0-0.1) 03/16/17 05:50 Absolute Nucleated RBC 0.01 x10^3/uL 03/16/17 05:50 Nucleated RBCs 0.1 /100WBC 03/16/17 05:50 PT 13.3 secs (9.9-12.6) H 03/13/17 21:50 INR 1.2 (0.8-1.2) 03/13/17 21:50 APTT 23.1 secs (24.9-33.3) L 03/13/17 21:50 VBG pH 7.284 (7.31-7.41) L 03/14/17 02:30 VBG pCO2 51.5 mmHg (41-51) H 03/14/17 02:30 VBG pO2 80.9 mmHg (25-47) H 03/14/17 02:30 VBG HCO3 23.9 mmol/L (23-28) 03/14/17 02:30 VBG Total CO2 25.5 mmol/L (24-29) 03/14/17 02:30 VBG O2 Saturation 94.9 % (60-80) H 03/14/17 02:30 VBG Base Excess -3.1 mmol/L (-2 - +2) L 03/14/17 02:30 Sodium 134 mmol/L (135-145) L 03/16/17 05:50 Potassium 4.1 mmol/L (3.5-5.0) 03/16/17 05:50 Chloride 100 mmol/L (101-111) L 03/16/17 05:50 Carbon Dioxide 27 mmol/L (21-32) 03/16/17 05:50 Anion Gap 7.0 (6-13) 03/16/17 05:50 BUN 28 mg/dL (6-20) H 03/16/17 05:50 Creatinine 0.9 mg/dL (0.6-1.2) 03/16/17 05:50 Estimated GFR (MDRD) 81 (>89) L 03/16/17 05:50 Glucose 95 mg/dL (70-100) 03/16/17 05:50 Lactic Acid 0.6 mmol/L (0.5-2.2) 03/13/17 23:10 Calcium 8.5 mg/dL (8.5-10.3) 03/16/17 05:50 Total Bilirubin 0.4 mg/dL (0.2-1.0) 03/13/17 21:50 AST 39 IU/L (10-42) 03/13/17 21:50 ALT 40 IU/L (10-60) 03/13/17 21:50 Alkaline Phosphatase 72 IU/L (42-121) 03/13/17 21:50 Troponin I < 0.04 ng/mL (<0.49) 03/14/17 09:05 B-Natriuretic Peptide 251 pg/mL (5-100) H 03/13/17 21:50 Total Protein 6.7 g/dL (6.7-8.2) 03/13/17 21:50 Albumin 3.3 g/dL (3.2-5.5) 03/13/17 21:50 Globulin 3.4 g/dL (2.1-4.2) 03/13/17 21:50 Albumin/Globulin Ratio 1.0 (1.0-2.2) 03/13/17 21:50 Lipase 40 U/L (22-51) 03/13/17 21:50 Urine Color YELLOW 03/14/17 00:57 Urine Clarity CLEAR (CLEAR) 03/14/17 00:57 Urine pH 5.5 PH (5.0-7.5) 03/14/17 00:57 Ur Specific [place] 1.025 (1.002-1.030) 03/14/17 00:57 Urine Protein 30 mg/dL (NEGATIVE) H 03/14/17 00:57 Urine Glucose (UA) NEGATIVE mg/dL (NEGATIVE) 03/14/17 00:57 Urine Ketones NEGATIVE mg/dL (NEGATIVE) 03/14/17 00:57 Urine Occult Blood SMALL (NEGATIVE) H 03/14/17 00:57 Urine Nitrite NEGATIVE (NEGATIVE) 03/14/17 00:57 Urine Bilirubin NEGATIVE (NEGATIVE) 03/14/17 00:57 Urine Urobilinogen 0.2 (NORMAL) E.U./dL (NORMAL) 03/14/17 00:57 Ur Leukocyte Esterase NEGATIVE (NEGATIVE) 03/14/17 00:57 Urine RBC None Seen /HPF (0-5) 03/14/17 00:57 Urine WBC 0-3 /HPF (0-3) 03/14/17 00:57 Ur Squamous Epith Cells RARE Squamous (<= Few) 03/14/17 00:57 Urine Bacteria None Seen /HPF (None Seen) 03/14/17 00:57 Ur Microscopic Review INDICATED 03/14/17 00:57 Urine Culture Comments NOT INDICATED 03/14/17 00:57 Influenza A (Rapid) Negative (Negative) 03/14/17 03:07 Influenza B (Rapid) Negative (Negative) 03/14/17 03:07 Influenza Types A,B Ag - 03/14/17 03:07
[2017-03-16] MEDS: predniSONE 20 MG TABLET PO SCH (08:31)
[2017-03-16] MEDS: ASPIRIN 325 MG TABLET PO SCH (08:32)
[2017-03-16] MEDS: ATORVASTATIN 10 MG TABLET PO SCH (08:32)
[2017-03-16] MEDS: SACCHAROMYCES BOULARDII 250 MG CAPSULE PO SCH ×2 (08:32→17:14)
[2017-03-16] MEDS: ATENOLOL 25 MG TABLET PO SCH (08:32)
[2017-03-16] MEDS: AZITHROMYCIN INJ 500 MG in SODIUM CHLORIDE 0.9% 250 ML IV SCH (08:33)
[2017-03-16] MEDS: ENOXAPARIN 40 MG/0.4 ML SYRINGE SUBQ SCH (08:33)
[2017-03-16] MEDS: CLOPIDOGREL 75 MG TABLET PO SCH (08:33)
[2017-03-16] MEDS: NICOTINE 21 MG PATCH TOP SCH (08:37)
[2017-03-16] MEDS: SODIUM CHLORIDE FLUSH 0.9% 10 ML SYRINGE IVP PRN ×2 (08:39→09:43)
[2017-03-16] MEDS: POLYETHYLENE GLYCOL 3350 17 GM PACKET PO SCH (08:39)
[2017-03-16] MEDS: OLANZapine ODT 5 MG TABLET TL PRN (21:16)
[2017-03-17] MEDS: cefTRIAXone 2 GM in SODIUM CHLORIDE 0.9% MINIBAG 100 ML IV SCH (01:57)
[2017-03-17] MEDS: SODIUM CHLORIDE FLUSH 0.9% 10 ML SYRINGE IVP SCH ×3 (06:04→20:00)
[2017-03-17] MEDS: LORazepam 0.5 MG TABLET PO SCH ×3 (06:04→20:00)
[2017-03-17] MEDS: PANTOPRAZOLE 40 MG TABLET PO SCH (06:04)
[2017-03-17 06:28] LABS: HCT - HEMATOCRIT 36.5 % (42.0-52.0); HGB - HEMOGLOBIN 11.4 g/dL (14.0-18.0); MEAN CORPUSCULAR HEMOGLOBIN 24.6 pg (27.0-31.0); MEAN CORPUSCULAR HGB CONC 31.4 g/dL (32.0-36.0); MEAN CORPUSCULAR VOLUME 78.5 fL (80.0-94.0); MEAN PLATELET VOLUME 6.8 fL (7.4-11.4); RED BLOOD COUNT 4.65 10^6/uL (4.70-6.10); RED CELL DISTRIBUTION WIDTH 17.3 % (12.0-15.0)
[2017-03-17 06:42] LABS: ALBUMIN/GLOBULIN RATIO 0.8 (1.0-2.2); BILIRUBIN,TOTAL 0.4 mg/dL (0.2-1.0); CALCIUM 8.5 mg/dL (8.5-10.3); CREATININE 0.9 mg/dL (0.6-1.2); POTASSIUM 4.2 mmol/L (3.5-5.0); TOTAL PROTEIN 6.2 g/dL (6.7-8.2)
--- NOTE | 2017-03-17 07:00 | XRAY Preliminary Report ---
Exam: XR Chest 2 View PA/LAT IMPRESSION: 1. Development of indistinct and nodular bilateral upper lobe airspace disease, left greater than rig ht. This may be due to infection in the appropriate clinical setting. 2. Rounded masslike consolidation over the left pulmonary hilum again seen, slightly larger than the prior exam. 3. Small left sided pleural effusion, increased from the prior exam. [facility] SITE ID: [id number]
--- NOTE | 2017-03-17 07:04 | XRAY Report ---
EXAM: CHEST RADIOGRAPHY EXAM DATE: 03/17/2017 05:53 AM. CLINICAL HISTORY: Pneumonia follow-up COMPARISON: None. TECHNIQUE: 2 views. FINDINGS: Lungs/Pleura: Masslike consolidation over the left pulmonary hilar region is again noted. This appear s larger than the prior 03/13/2017 examination. There has been volume loss within the left hemithorax with mild elevation left hemidiaphragm. Subsegmental left lung base opacity again seen, probably ate lectasis. Small left effusion appears slightly larger. Tiny nodular opacity in the right lateral lung base, indeterminate. Indistinct left upper lobe opacity and small patchy nodular right upper lobe op acities have developed. Increased lung volumes suggesting underlying obstructive disease. Mediastinum: Cardiac silhouette is within normal limits when accounting for lung volumes and techniq ue. Other: None. IMPRESSION: 1. Development of indistinct and nodular bilateral upper lobe airspace disease, left greater than rig ht. This may be due to infection in the appropriate clinical setting. 2. Rounded masslike consolidation over the left pulmonary hilum again seen, slightly larger than the prior exam. 3. Small left sided pleural effusion, increased from the prior exam. [facility] Referring Provider Line: [phone] SITE ID: [id number]
[2017-03-17] MEDS: ENOXAPARIN 40 MG/0.4 ML SYRINGE SUBQ SCH (08:37)
[2017-03-17] MEDS: SODIUM CHLORIDE FLUSH 0.9% 10 ML SYRINGE IVP PRN (08:38)
[2017-03-17] MEDS: AZITHROMYCIN INJ 500 MG in SODIUM CHLORIDE 0.9% 250 ML IV SCH (08:38)
[2017-03-17] MEDS: NICOTINE 21 MG PATCH TOP SCH (09:03)
[2017-03-17] MEDS: POLYETHYLENE GLYCOL 3350 17 GM PACKET PO SCH (09:03)
[2017-03-17] MEDS: ATENOLOL 25 MG TABLET PO SCH (09:04)
[2017-03-17] MEDS: ATORVASTATIN 10 MG TABLET PO SCH (09:04)
[2017-03-17] MEDS: predniSONE 20 MG TABLET PO SCH (09:04)
[2017-03-17] MEDS: SACCHAROMYCES BOULARDII 250 MG CAPSULE PO SCH ×2 (09:04→16:05)
[2017-03-17] MEDS: ASPIRIN 325 MG TABLET PO SCH (09:04)
[2017-03-17] MEDS: CLOPIDOGREL 75 MG TABLET PO SCH (09:04)
[2017-03-17] MEDS ORDERED: IOPAMIDOL-300 100 ML VIAL IVP ONE (11:29)
--- NOTE | 2017-03-17 14:37 | CT Report ---
CONTRAST ENHANCED CT EXAM OF THE CHEST: 03/17/2017 CLINICAL HISTORY: Mass in chest. COMPARISON: Chest CT of 10/13/2012. TECHNIQUE: The patient received 100 mL of Isovue-300. CT scan of the chest was obtained at 5 by 5 mm intervals with axial, coronal and sagittal reconstructions. 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 This aneurysm has diameters of 6.8 cm by 4.3 cm by 5.8 cm. The inferior aspect of this aneurysm is thrombosed. The area of thrombosis measures 4.5 cm by 4.1 cm by 4.3 cm. This aneurysm begins at the origin of the left subclavian artery. The aneurysm shows significant progression as compared to preceding exam. On preceding exam, the aneurysm in the aortic arch had a maximal diameter of 4.1 cm. It also did not contain thrombus in its inferior aspect. It demonstrates mild ectasia with maximal diameter of 4.2 cm. The mid descending aorta also demonstrates significant ectasia measuring 3.7 cm by 3.7 cm. There is an aneurysm in the distal descending thoracic aorta measuring 4.6 cm by 4.6 cm. This area of the thoracic aorta on preceding exam measured 3.8 cm by 3.9 cm. There has been some mild progression in the aneurysmal dilatation of the distal thoracic aorta since preceding exam. The mediastinum demonstrates mild anterior carinal and right tracheobronchial adenopathy. This adenopathy shows some mild progression as compared to preceding exam. There is a question of some subtle calcifications in at least one of the lymph nodes in this area. The lymph node with possible calcifications in it is the largest one measuring 1.4 cm. Lung windows demonstrate once again severe emphysema. Some atelectasis and mild to moderate scarring is seen in the most inferior aspect of the lower lobes. No significant parenchymal nodules are seen. Significant progression in emphysema is seen as compared to preceding exam. Upper abdomen shows small amount of ascites. The left adrenal gland appears to be enlarged. This is nonspecific enlargement. This may be an adrenal mass versus adrenal hypertrophy. This area was not well seen on preceding exam and, therefore, cannot accurately comment about change. The bones show mild anterior spurring in the thoracic spine. IMPRESSION: 1. 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 INFERIOR ASPECT OF THE ANEURYSM HAS THROMBUS WITHIN IT. THE ANEURYSM BEGINS AT THE LEVEL OF THE ORIGIN OF THE LEFT SUBCLAVIAN ARTERY. IT HAS SUBSTANTIALLY INCREASED IN SIZE SINCE PRECEDING EXAM DATED 10/13/2012. 2. ECTASIA OF THE ASCENDING AND DESCENDING THORACIC AORTA IS NOTED. 3. A 4.6 CM BY 4.8 CM ANEURYSM IS SEEN IN THE DISTAL DESCENDING THORACIC AORTA WITH MILD INCREASE IN SIZE SINCE PRECEDING EXAM DISCUSSED ABOVE. 4. ABDOMINAL AORTA SHOWS A STENT WITHIN IT. 5. EXTENSIVE EMPHYSEMA IS NOTED. EMPHYSEMA SHOWS SIGNIFICANT PROGRESSION COMPARED TO PRECEDING EXAM. 6. 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 7. THERE IS A SUGGESTION OF A PROMINENT 2 CM IN DIAMETER RIGHT HILAR LYMPH NODE. THIS MAY HAVE BEEN PRESENT ON PRECEDING EXAM. RECOMMEND THIS AREA BE FOLLOWED WITH A REPEAT CT EXAM IN SIX MONTHS FOR FURTHER EVALUATION. 8. NONSPECIFIC ENLARGEMENT OF THE LEFT ADRENAL GLAND. 9. SMALL AMOUNT OF ASCITES PRESENT. In accordance with CT protocol optimization, one or more of the following dose reduction techniques were utilized for this exam: automated exposure control, adjustment of mA and/or KV based on patient size, or use of iterative reconstructive technique. JOB #: [id number] EXT JOB #: [id number] [place]
[2017-03-17] MEDS: OLANZapine ODT 5 MG TABLET TL PRN (21:56)
[2017-03-18] MEDS: cefTRIAXone 2 GM in SODIUM CHLORIDE 0.9% MINIBAG 100 ML IV SCH (01:35)
[2017-03-18] MEDS: SODIUM CHLORIDE FLUSH 0.9% 10 ML SYRINGE IVP PRN (01:36)
[2017-03-18] MEDS: PANTOPRAZOLE 40 MG TABLET PO SCH (06:12)
[2017-03-18] MEDS: LORazepam 0.5 MG TABLET PO SCH ×3 (06:12→21:23)
[2017-03-18] MEDS: SODIUM CHLORIDE FLUSH 0.9% 10 ML SYRINGE IVP SCH ×3 (06:12→22:04)
[2017-03-18] MEDS: ATORVASTATIN 10 MG TABLET PO SCH (08:38)
[2017-03-18] MEDS: SACCHAROMYCES BOULARDII 250 MG CAPSULE PO SCH ×2 (08:38→16:33)
[2017-03-18] MEDS: predniSONE 20 MG TABLET PO SCH (08:38)
[2017-03-18] MEDS: ATENOLOL 25 MG TABLET PO SCH (08:39)
[2017-03-18] MEDS: DOCUSATE SODIUM 250 MG CAPSULE PO SCH (08:39)
[2017-03-18] MEDS: SENNA 8.6 MG TABLET PO SCH (08:39)
[2017-03-18] MEDS: ASPIRIN 325 MG TABLET PO SCH (08:39)
[2017-03-18] MEDS: CLOPIDOGREL 75 MG TABLET PO SCH (08:39)
[2017-03-18] MEDS: NICOTINE 21 MG PATCH TOP SCH (08:40)
[2017-03-18] MEDS: ENOXAPARIN 40 MG/0.4 ML SYRINGE SUBQ SCH (08:40)
[2017-03-18] MEDS: POLYETHYLENE GLYCOL 3350 17 GM PACKET PO SCH (08:40)
[2017-03-18] MEDS: AZITHROMYCIN INJ 500 MG in SODIUM CHLORIDE 0.9% 250 ML IV SCH (11:32)
[2017-03-18] MEDS: OLANZapine ODT 5 MG TABLET TL PRN (21:23)
[2017-03-19] MEDS: cefTRIAXone 2 GM in SODIUM CHLORIDE 0.9% MINIBAG 100 ML IV SCH (02:07)
[2017-03-19] MEDS: SODIUM CHLORIDE FLUSH 0.9% 10 ML SYRINGE IVP PRN (02:37)
[2017-03-19] MEDS: LORazepam 0.5 MG TABLET PO SCH ×3 (05:56→21:37)
[2017-03-19] MEDS: SODIUM CHLORIDE FLUSH 0.9% 10 ML SYRINGE IVP SCH ×3 (05:57→21:38)
[2017-03-19] MEDS: PANTOPRAZOLE 40 MG TABLET PO SCH (05:57)
--- NOTE | 2017-03-19 08:03 | PROVIDER PROGRESS NOTE ---
Assessment/Plan - Problem List (1) Pneumonia Assessment/Plan: Sonny is now on room air. He had CT chest which showed the aneurysms but only atelectasis. Will finish antibiotics 10 day course. Lengthy conference 3 in 4 days that discussed his care and his disposition. Attempting to get a decision from the on a facility and then get approval. (2) Sepsis Qualifiers: Sepsis type: sepsis due to unspecified organism Qualified Code(s): A41.9 - Sepsis, unspecified organism Assessment/Plan: resolved. no bacteremia isolated. - Current Meds Current Meds: Current Medications Generic Name Dose Route Start Last Admin Trade Name Freq PRN Reason Stop Dose Admin Acetaminophen/Hydrocodone Bitart 1 tab 03/14/17 07:50 03/16/17 15:04 [place] 5/325 PO 1 tab Q4HR PRN Administration Pain 5 to 7 Aspirin 325 mg 03/14/17 09:00 03/18/17 08:39 Nik PO 325 mg DAILY ALONZO Administration Atenolol 50 mg 03/14/17 09:00 03/18/17 08:39 Tenormin PO 50 mg DAILY ALONZO Administration Atorvastatin Calcium 20 mg 03/14/17 09:00 03/18/17 08:38 Lipitor PO 20 mg DAILY ALONZO Administration Clonidine HCl 0.1 mg 03/15/17 16:53 03/15/17 21:24 Catapres PO 0.1 mg Q6H PRN Administration Hypertensive Emergency Clopidogrel Bisulfate 75 mg 03/14/17 09:00 03/18/17 08:39 Plavix PO 75 mg DAILY ALONZO Administration Docusate Sodium 250 - 500 mg 03/18/17 09:00 03/18/17 08:39 Colace 250mg Capsule PO 250 mg DAILY ALONZO Administration Enoxaparin Sodium 40 mg 03/14/17 09:00 03/18/17 08:40 Lovenox SUBQ 40 mg DAILY ALONZO Administration Ceftriaxone Sodium 2 gm/ 100 mls @ 200 mls/hr 03/15/17 02:00 03/19/17 02:07 Sodium Chloride IV 200 mls/hr Q24H ALONZO Administration Azithromycin 500 mg/ Sodium 250 mls @ 250 mls/hr 03/14/17 09:00 03/18/17 11:32 Chloride IV Not Given DAILY ALONZO Lorazepam 0.5 mg 03/15/17 11:00 03/19/17 05:56 Ativan PO 0.5 mg TID ALONZO Administration Nicotine 1 patch 03/15/17 11:00 03/18/17 08:40 Nicoderm TOP 1 patch DAILY ALONZO Administration Olanzapine 5 mg 03/16/17 19:25 03/18/17 21:23 Zyprexa Odt TL 5 mg QPM PRN Administration Agitation Pantoprazole Sodium 40 mg 03/14/17 11:00 03/19/17 05:57 Protonix PO 40 mg QDAC ALONZO Administration Polyethylene Glycol 17 gm 03/14/17 09:00 03/18/17 08:40 Miralax PO 17 gm DAILY ALONZO Administration Prednisone 40 mg 03/14/17 08:00 03/18/17 08:38 Deltasone PO 40 mg DAILYWM ALONZO Administration Saccharomyces Boulardii 250 mg 03/14/17 08:00 03/18/17 16:33 Florastor PO 250 mg BIDWM ALONZO Administration Senna 8.6 - 17.2 mg 03/18/17 09:00 03/18/17 08:39 Senokot PO 8.6 mg DAILY ALONZO Administration Sodium Chloride 10 ml 03/14/17 07:50 03/19/17 02:37 Normal Saline Flush 0.9% IVP 10 ml PRN PRN Administration NEEDED PER PROVIDER ORDERS Sodium Chloride 10 ml 03/14/17 14:00 03/19/17 05:57 Normal Saline Flush 0.9% IVP 10 ml Q8HR ALONZO Administration - Lab Result Fish Bone Diagrams: 03/17/17 06:18 03/17/17 06:18 Subjective - Subjective Patient Reports: Feeling Better, Resting Comfortably Nursing Reports: Confused Objective Vital Signs: Vital Signs - 24 hr 03/18/17 03/18/17 03/18/17 08:23 09:45 10:16 Temperature 36.4 C L Heart Rate 67 Heart Rate [ 55 L Brachial] Respiratory 20 24 Rate Blood Pressure [Left Brachial artery] Blood Pressure 165/85 H [Right Brachial artery] O2 Saturation 92 98 03/18/17 03/19/17 16:25 05:15 Temperature 36.5 C 36.7 C Heart Rate Heart Rate [ 55 L 70 Brachial] Respiratory 20 16 Rate Blood Pressure 132/79 H 156/90 H [Left Brachial artery] Blood Pressure [Right Brachial artery] O2 Saturation 94 94 Oxygen O2 Source Room air I&O (Last 24 Hrs): Intake and Output Totals x24h 03/17/17 03/18/17 03/19/17 23:59 23:59 23:59 Intake Total 910 1150 100 Output Total 750 1075 Balance 160 75 100 General: Alert, No acute distress HEENT: PERRLA, EOMI Neck: No JVD, No thyromegaly Neuro: Alert, Disoriented, Speech Slurred, CN 2-12 Grossly Intact Cardiovascular: Regular rate, No murmurs Respiratory: No respiratory distress, Breath sounds nml Abdomen: Normal bowel sounds, Soft Extremities: No clubbing, No edema - Results Results: Laboratory Results WBC 11.0 x10^3/uL (4.8-10.8) H 03/17/17 06:18 RBC 4.65 10^6/uL (4.70-6.10) L 03/17/17 06:18 Hgb 11.4 g/dL (14.0-18.0) L 03/17/17 06:18 Hct 36.5 % (42.0-52.0) L 03/17/17 06:18 MCV 78.5 fL (80.0-94.0) L 03/17/17 06:18 MCH 24.6 pg (27.0-31.0) L 03/17/17 06:18 MCHC 31.4 g/dL (32.0-36.0) L 03/17/17 06:18 RDW 17.3 % (12.0-15.0) H 03/17/17 06:18 Plt Count 269 10^3/uL (130-450) 03/17/17 06:18 MPV 6.8 fL (7.4-11.4) L 03/17/17 06:18 Neut # 11.3 10^3/uL (1.5-6.6) H 03/16/17 05:50 Lymph # 1.0 10^3/uL (1.5-3.5) L 03/16/17 05:50 [place] # 1.0 10^3/uL (0.0-1.0) 03/16/17 05:50 Eos # 0.1 10^3/uL (0.0-0.7) 03/16/17 05:50 Baso # 0.0 10^3/uL (0.0-0.1) 03/16/17 05:50 Absolute Nucleated RBC 0.01 x10^3/uL 03/16/17 05:50 Nucleated RBCs 0.1 /100WBC 03/16/17 05:50 PT 13.3 secs (9.9-12.6) H 03/13/17 21:50 INR 1.2 (0.8-1.2) 03/13/17 21:50 APTT 23.1 secs (24.9-33.3) L 03/13/17 21:50 VBG pH 7.284 (7.31-7.41) L 03/14/17 02:30 VBG pCO2 51.5 mmHg (41-51) H 03/14/17 02:30 VBG pO2 80.9 mmHg (25-47) H 03/14/17 02:30 VBG HCO3 23.9 mmol/L (23-28) 03/14/17 02:30 VBG Total CO2 25.5 mmol/L (24-29) 03/14/17 02:30 VBG O2 Saturation 94.9 % (60-80) H 03/14/17 02:30 VBG Base Excess -3.1 mmol/L (-2 - +2) L 03/14/17 02:30 Sodium 132 mmol/L (135-145) L 03/17/17 06:18 Potassium 4.2 mmol/L (3.5-5.0) 03/17/17 06:18 Chloride 99 mmol/L (101-111) L 03/17/17 06:18 Carbon Dioxide 27 mmol/L (21-32) 03/17/17 06:18 Anion Gap 6.0 (6-13) 03/17/17 06:18 BUN 32 mg/dL (6-20) H 03/17/17 06:18 Creatinine 0.9 mg/dL (0.6-1.2) 03/17/17 06:18 Estimated GFR (MDRD) 81 (>89) L 03/17/17 06:18 Glucose 98 mg/dL (70-100) 03/17/17 06:18 Lactic Acid 0.6 mmol/L (0.5-2.2) 03/13/17 23:10 Calcium 8.5 mg/dL (8.5-10.3) 03/17/17 06:18 Total Bilirubin 0.4 mg/dL (0.2-1.0) 03/17/17 06:18 AST 18 IU/L (10-42) 03/17/17 06:18 ALT 26 IU/L (10-60) 03/17/17 06:18 Alkaline Phosphatase 67 IU/L (42-121) 03/17/17 06:18 Troponin I < 0.04 ng/mL (<0.49) 03/14/17 09:05 B-Natriuretic Peptide 251 pg/mL (5-100) H 03/13/17 21:50 Total Protein 6.2 g/dL (6.7-8.2) L 03/17/17 06:18 Albumin 2.7 g/dL (3.2-5.5) L 03/17/17 06:18 Globulin 3.5 g/dL (2.1-4.2) 03/17/17 06:18 Albumin/Globulin Ratio 0.8 (1.0-2.2) L 03/17/17 06:18 Lipase 40 U/L (22-51) 03/13/17 21:50 TSH 5.43 uIU/mL (0.34-5.60) 03/19/17 05:00 Urine Color YELLOW 03/14/17 00:57 Urine Clarity CLEAR (CLEAR) 03/14/17 00:57 Urine pH 5.5 PH (5.0-7.5) 03/14/17 00:57 Ur Specific [place] 1.025 (1.002-1.030) 03/14/17 00:57 Urine Protein 30 mg/dL (NEGATIVE) H 03/14/17 00:57 Urine Glucose (UA) NEGATIVE mg/dL (NEGATIVE) 03/14/17 00:57 Urine Ketones NEGATIVE mg/dL (NEGATIVE) 03/14/17 00:57 Urine Occult Blood SMALL (NEGATIVE) H 03/14/17 00:57 Urine Nitrite NEGATIVE (NEGATIVE) 03/14/17 00:57 Urine Bilirubin NEGATIVE (NEGATIVE) 03/14/17 00:57 Urine Urobilinogen 0.2 (NORMAL) E.U./dL (NORMAL) 03/14/17 00:57 Ur Leukocyte Esterase NEGATIVE (NEGATIVE) 03/14/17 00:57 Urine RBC None Seen /HPF (0-5) 03/14/17 00:57 Urine WBC 0-3 /HPF (0-3) 03/14/17 00:57 Ur Squamous Epith Cells RARE Squamous (<= Few) 03/14/17 00:57 Urine Bacteria None Seen /HPF (None Seen) 03/14/17 00:57 Ur Microscopic Review INDICATED 03/14/17 00:57 Urine Culture Comments NOT INDICATED 03/14/17 00:57 Influenza A (Rapid) Negative (Negative) 03/14/17 03:07 Influenza B (Rapid) Negative (Negative) 03/14/17 03:07 Influenza Types A,B Ag - 03/14/17 03:07
[2017-03-19] MEDS: ASPIRIN 325 MG TABLET PO SCH (08:33)
[2017-03-19] MEDS: POLYETHYLENE GLYCOL 3350 17 GM PACKET PO SCH (08:33)
[2017-03-19] MEDS: ATENOLOL 25 MG TABLET PO SCH (08:34)
[2017-03-19] MEDS: CLOPIDOGREL 75 MG TABLET PO SCH (08:34)
[2017-03-19] MEDS: ATORVASTATIN 10 MG TABLET PO SCH (08:34)
[2017-03-19] MEDS: predniSONE 20 MG TABLET PO SCH (08:35)
[2017-03-19] MEDS: DOCUSATE SODIUM 250 MG CAPSULE PO SCH (08:35)
[2017-03-19] MEDS: SACCHAROMYCES BOULARDII 250 MG CAPSULE PO SCH ×2 (08:35→17:13)
[2017-03-19] MEDS: SENNA 8.6 MG TABLET PO SCH (08:35)
[2017-03-19] MEDS: ENOXAPARIN 40 MG/0.4 ML SYRINGE SUBQ SCH (08:36)
[2017-03-19] MEDS: NICOTINE 21 MG PATCH TOP SCH (08:36)
[2017-03-19] MEDS: AZITHROMYCIN INJ 500 MG in SODIUM CHLORIDE 0.9% 250 ML IV SCH (08:40)
[2017-03-19] MEDS: OLANZapine ODT 5 MG TABLET TL PRN (21:57)
--- NOTE | 2017-03-20 00:08 | DISCHARGE SUMMARY ---
DATE OF ADMISSION: 03/14/2017 DATE OF DISCHARGE: 03/19/2017 PRIMARY CARE PHYSICIAN: None. ADMISSION DIAGNOSES: 1. Syncopal episode, unclear etiology. 2. Sepsis. 3. Pneumonia. 4. Chronic obstructive pulmonary disease with exacerbation. DISCHARGE DIAGNOSES: 1. Syncopal episode with arrhythmia, specifically, bradycardia as etiology. 2. Sepsis, resolved. 3. Bilateral pneumonia, community-acquired with improvement on antibiotics. 4. Chronic obstructive pulmonary disease with exacerbation, resolved. 5. Dementia with behavioral changes, improved. 6. Coronary and peripheral vascular disease. 7. Hypercholesterolemia. SPECIAL PROCEDURES: The patient had a head CT scan which showed senescent changes. 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 It also shows the aneurysm. It also shows the abdominal stent placement. CONSULTATIONS: None. HOSPITAL COURSE AND MANAGEMENT: Initial presentation, emergency department evaluation, and hospitalist plan are well described in the history and physical , see copy of same. SUMMARY: This is an 82-year-old with a history of COPD, dementia and who on the day admission was standing in the kitchen while his was bending over to get up a plate, a Pyrex, and she turned around she saw him with his eyes rolled back and he went down and did not protect himself and he fell backwards hitting his head. 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 The patient was admitted for the sepsis, pneumonia and syncopal episode. The patient was started on Rocephin and Zithromax. The patient also placed on prednisone along with nebulizer treatments. The patient first 2 nights was not cogent, was not cooperative at all and was agitated. On the third day the patient had improvement during the day, but more behavioral changes at night as he had the previous 2 days. The patient was given Zyprexa, slept well and he had Ativan given during the daytime and the Zyprexa that night, which improved both his nighttime and daytime behavior. The patient was eating well in the last 2 days and was able to ambulate with physical therapy. The patient was very unsteady on his feet, had small steps. The patient takes multiple steps to make a turn. Occupational and physical therapy both evaluated the patient and agreed that the patient needs to have therapy for improvement in her ADLs, gait balance and transfers. The patient's sepsis resolved. The patient's hypoxia , resolved, and he was on room air on the day of discharge. The patient's was engaged in 3 separate conferences to ascertain a disposition plan. It was decided that when he was a candidate for a SNF that he would go to about go to [facility]. The patient was examined on the day of discharge and found ready for discharge. Time spent in collaboration with case management, discharge planning, nursing and education of the , 50 minutes. The patient was examined on the day of discharge. JOB #: [id number] EXT JOB #:[id number] [place]
[2017-03-20] MEDS: cefTRIAXone 2 GM in SODIUM CHLORIDE 0.9% MINIBAG 100 ML IV SCH (02:37)
[2017-03-20] MEDS: SODIUM CHLORIDE FLUSH 0.9% 10 ML SYRINGE IVP SCH ×2 (06:24→13:53)
[2017-03-20] MEDS: PANTOPRAZOLE 40 MG TABLET PO SCH (06:24)
[2017-03-20] MEDS: LORazepam 0.5 MG TABLET PO SCH ×2 (06:24→13:42)
[2017-03-20] MEDS: POLYETHYLENE GLYCOL 3350 17 GM PACKET PO SCH (08:25)
[2017-03-20] MEDS: ATORVASTATIN 10 MG TABLET PO SCH (08:26)
[2017-03-20] MEDS: SENNA 8.6 MG TABLET PO SCH (08:26)
[2017-03-20] MEDS: ASPIRIN 325 MG TABLET PO SCH (08:26)
[2017-03-20] MEDS: SACCHAROMYCES BOULARDII 250 MG CAPSULE PO SCH (08:26)
[2017-03-20] MEDS: CLOPIDOGREL 75 MG TABLET PO SCH (08:27)
[2017-03-20] MEDS: predniSONE 20 MG TABLET PO SCH (08:28)
[2017-03-20] MEDS: DOCUSATE SODIUM 250 MG CAPSULE PO SCH (08:28)
[2017-03-20] MEDS: ATENOLOL 25 MG TABLET PO SCH (08:28)
[2017-03-20] MEDS: NICOTINE 21 MG PATCH TOP SCH (08:30)
[2017-03-20] MEDS: ENOXAPARIN 40 MG/0.4 ML SYRINGE SUBQ SCH (08:32)
[2017-03-20] MEDS ORDERED: CEFUROXIME AXETIL 250 MG TABLET PO SCH (11:00)
[2017-03-20 13:55] VITALS: BP 180/94
[2017-03-20] MEDS: OLANZapine ODT 5 MG TABLET TL PRN (18:10)
[2017-03-21] MEDS ORDERED: predniSONE 20 MG TABLET PO SCH (08:00)
== END 2017-03-20 19:40 | DRG 871 ==
LOC: SUPCPDRO 21:17 → ED 21:17 → MS 03-14 03:20
PROVIDERS: ADMIT Specialist; ATTEND Nurse Practitioner
DX: R55 Syncope and collapse (principal); A41.9 Sepsis, unspecified organism; J18.9 Pneumonia, unspecified organism; N17.9 Acute kidney failure, unspecified; Z87.891 Personal history of nicotine dependence; J44.0 Chronic obstructive pulmonary disease with (acute) lower respiratory infection; J44.1 Chronic obstructive pulmonary disease with (acute) exacerbation; D72.829 Elevated white blood cell count, unspecified; F03.90 Unspecified dementia, unspecified severity, without behavioral disturbance, psychotic disturbance, mood disturbance, and anxiety; Z79.82 Long term (current) use of aspirin; E78.00 Pure hypercholesterolemia, unspecified; I25.2 Old myocardial infarction; I10 Essential (primary) hypertension; I25.10 Atherosclerotic heart disease of native coronary artery without angina pectoris; I73.9 Peripheral vascular disease, unspecified; I71.2 Thoracic aortic aneurysm, without rupture; Z86.73 Personal history of transient ischemic attack (TIA), and cerebral infarction without residual deficits; F17.200 Nicotine dependence, unspecified, uncomplicated
CPT/HCPCS: 36415; 70450; 71010; 71020; 71260; 72125; 80048; 80053; 81001; 81003; 82803; 83605; 83690; 83880; 84443; 84484; 85025; 85610; 85730; 87040; 87070; 87086; 87205; 87275; 87276; 93005; 93010; 93306; 94640; 96361; 96374; 96375; 99284; 99285